=== PATIENT | male | born 1960 ===

== ENCOUNTER 2024-04-01 08:59 | Observation (INO) | payer BC ==
[~2024-04-01] VITALS: Ht 182.9 cm; Wt 136.3 kg
[2024-04-01 12:34] VITALS: BP 128/77; PULSE 72; TEMP 98.3
[2024-04-01 13:00] VITALS: BP_SYST 128
[2024-04-01] MEDS ORDERED: Lidocaine PF 2% (20 MG/ML) 5 ML VIAL ONE (13:15)
[2024-04-01] MEDS ORDERED: dexAMETHasone 10 MG/ML VIAL ONE (13:15)
[2024-04-01] MEDS ORDERED: Ondansetron 4 MG/2 ML VIAL ONE (13:15)
[2024-04-01] MEDS ORDERED: NS 20 ML IV ONE (13:18)
[2024-04-01] MEDS ORDERED: fentaNYL 50 MCG/ML 2 ML VIAL ONE (13:18)
[2024-04-01] MEDS ORDERED: HYTRIN 1MG C1 MG/CAP PO (13:24)
[2024-04-01] MEDS ORDERED: MONODOX50 M1 PO (13:25)
[2024-04-01] MEDS ORDERED: PRINZIDE 12.5 M1 TA1 PO (13:25)
--- NOTE | 2024-04-01 13:26 | NUR ---
1235-PT ARRIVED TO 352. PT IS A DIRECT ADMIT TO FOR A LEFT KIDNEY STONE. ACCOMPAINING. VSS. PT HAS BEEN NPO SINCE AM. ASSESSMENT AND INTAKE COMPLETED. ORIENTED TO ROOM AND FLOOR. PT CHANGED INTO A HOSPITAL GOWN. 1300-OR HERE TO TAKE PT DOWN. LR HANGING. BUNNY BUSH STATED SHE WILL PRINT CONSENTS DOWNSTAIRS AFTER SPEAKS WITH PT.
[2024-04-01] MEDS ORDERED: LR 1,000 ML IV SCH (13:30)
[2024-04-01] MEDS ORDERED: Morphine 4 MG/ML VIAL IV PRN (13:45)
[2024-04-01] MEDS ORDERED: Hyoscyamine 0.125 MG Sublingual TAB SL PRN (13:45)
[2024-04-01] MEDS ORDERED: Ondansetron 4 MG/2 ML VIAL IV PRN ×2 (13:45→14:00)
[2024-04-01] MEDS ORDERED: Naloxone 0.4 MG/ML VIAL IV PRN (13:45)
[2024-04-01] MEDS ORDERED: oxyCODONE/Acetaminophen 5-325 MG TAB PO PRN (13:45)
[2024-04-01] MEDS ORDERED: Meperidine 50 MG/ML 1 ML VIAL IV PRN (14:00)
[2024-04-01] MEDS ORDERED: HYDROmorphone 1 MG/1 ML SYRINGE [PACU/SDC ONLY] IV PRN (14:00)
[2024-04-01] MEDS ORDERED: fentaNYL 50 MCG/ML 1 ML SYRINGE/VIAL [PACU/SDC ONLY] IV PRN (14:00)
[2024-04-01] MEDS ORDERED: hydrALAZINE 20 MG/ML 1 ML VIAL IV PRN (14:00)
[2024-04-01] MEDS ORDERED: Lidocaine 2% (20 MG/ML) 20 ML UROJET UR ONE (14:06)
[2024-04-01] MEDS ORDERED: ePHEDrine 50 MG/ML VIAL ONE (14:12)
[2024-04-01 15:25] VITALS: BP 124/69; PULSE 68; TEMP 98.3
--- NOTE | 2024-04-01 15:38 | NUR ---
1510-PT BACK FROM OR. VSS. TOLERATING ICE. WATER AND URINAL GIVEN. INSTRUCTED PT AND HOW TO ORDER LUNCH. 1535-VSS. PT ASSISTED TO SIDE OF BED TO USE URINAL.
[2024-04-01 15:40] VITALS: BP 131/68; PULSE 71
[2024-04-01 16:00] VITALS: BP 123/78; PULSE 69; TEMP 98
--- NOTE | 2024-04-01 16:07 | NUR ---
PT VOIDED 200ML BLOODY YELLOW URINE.
[2024-04-01 17:17] VITALS: BP_SYST 123
--- NOTE | 2024-04-01 17:24 | NUR ---
PT TOLERATED DINNER WITH NO COMPLICATIONS. PT VOIDED 3 TIMES WITH EARLE URINE. PT STATES PAIN IS MUCH BETTER. DISCHARGE INSTRUCTIONS DISCUSSED WITH PT. WILL FOLLOW UP WITH THE UROLOGY OFFICE REGARDING NEXT CLINIC IN [place]. ALL QUESTIONS ANSWERED.
== END 2024-04-01 17:55 | disposition home or self-care (01) ==
LOC: MEDICAL 08:59
PROVIDERS: ADMIT Urology
DX: N20.1 Calculus of ureter (principal); N17.9 Acute kidney failure, unspecified; Z87.891 Personal history of nicotine dependence
CPT/HCPCS: C1758; C1769; C2617; G0378; J0690; J1100; J2405; J2704; J3010